=== PATIENT | male | born 1980 | race American Indian/Alaskan Native ===

== ENCOUNTER 2016-09-24 11:51 | Emergency (ER) | payer OTHER ==
[2016-09-24 11:59] VITALS: BP 169/108
[2016-09-24] MEDS ORDERED: DELTASONE PO ONE (12:29)
[2016-09-24] MEDS ORDERED: NORCO 5/325 PO ONE (12:30)
--- NOTE | 2016-09-24 12:33 | Emergency Department Report ---
ED Lower Extremity HPI - General Chief Complaint: Extremity Injury, Lower Stated Complaint: LEFT LEG AND LEFT HIP Time Seen by Provider: 09/24/16 12:19 Source: patient Mode of arrival: Ambulatory Limitations: No Limitations - Related Data Previous Rx's Medication Instructions Recorded Last Taken Type Amlodipine Besylate/Benazepril 1 each PO QDAY #30 capsule 09/24/16 Unknown Rx [Lotrel 10-40 mg] Cyclobenzaprine [Flexeril] 10 mg PO TID PRN #12 tablet 09/24/16 Unknown Rx Hydrochlorothiazide [HCTZ] 25 mg PO QDAY #30 tablet 09/24/16 Unknown Rx methylPREDNISolone [Medrol] 4 mg PO DAILY #1 tab.ds.pk 09/24/16 Unknown Rx traMADol [Ultram] 50 mg PO Q6HR PRN #12 tablet 09/24/16 Unknown Rx Allergies Allergy/AdvReac Type Severity Reaction Status Date / Time ANTI VIRALS Allergy Hives Uncoded 09/24/16 11:53 ED Review of Systems ROS: Stated complaint: LEFT LEG AND LEFT HIP Other details as noted in HPI Comment: All other systems reviewed and negative Constitutional: no symptoms reported Eyes: as per HPI ENT: as per HPI Respiratory: no symptoms reported Cardiovascular: as per HPI Endocrine: no symptoms reported Gastrointestinal: as per HPI Genitourinary: as per HPI Musculoskeletal: as per HPI Skin: as per HPI Neurological: as per HPI Psychiatric: as per HPI Hematological/Lymphatic: as per HPI ED Past Medical Hx - Past Medical History Hx Hypertension: Yes Additional medical history: BELLS PALSY. GOUT - Surgical History Additional Surgical History: LEFT FEMUR SURGERY. LEFT GREAT TOE - Social History Smoking Status: Never Smoker Substance Use Type: None - Medications Home Medications: Home Medications Medication Instructions Recorded Confirmed Last Taken Type Amlodipine Besylate/Benazepril 1 each PO QDAY #30 capsule 09/24/16 Unknown Rx [Lotrel 10-40 mg] Cyclobenzaprine [Flexeril] 10 mg PO TID PRN #12 tablet 09/24/16 Unknown Rx Hydrochlorothiazide [HCTZ] 25 mg PO QDAY #30 tablet 09/24/16 Unknown Rx methylPREDNISolone [Medrol] 4 mg PO DAILY #1 tab.ds.pk 09/24/16 Unknown Rx traMADol [Ultram] 50 mg PO Q6HR PRN #12 tablet 05/03/17 Unknown Rx ED Physical Exam - General Limitations: No Limitations General appearance: alert, in no apparent distress - Head Head exam: Present: atraumatic - Eye Eye exam: Present: normal appearance - ENT ENT exam: Present: normal exam - Neck Neck exam: Present: normal inspection - Respiratory Respiratory exam: Present: normal lung sounds bilaterally - Cardiovascular Cardiovascular Exam: Present: regular rate - GI/Abdominal GI/Abdominal exam: Present: soft - Rectal Rectal exam: Present: deferred - Extremities Exam Extremities exam: Present: normal inspection - Back Exam Back exam: Present: normal inspection - Neurological Exam Neurological exam: Present: alert, altered, oriented X3 - Psychiatric Psychiatric exam: Present: normal affect, normal mood - Skin Skin exam: Present: warm, dry, intact ED Course Vital Signs 09/24/16 11:56 Temperature 98.4 F Pulse Rate 71 Respiratory 19 Rate Blood Pressure 169/108 O2 Sat by Pulse 100 Oximetry ED Lower Extremity MDM - Radiology Data Radiology results: image reviewed - Medical Decision Making l hip pain obese no fall or trauma works on fork lift pos l straight leg raise no s/s cauda equina no incontin/parash. wants a work note until Thursday upset when told no Critical care attestation.: If time is entered above; I have spent that time in minutes in the direct care of this critically ill patient, excluding procedure time. ED Disposition Clinical Impression: Hypertension, Sciatica Disposition: DISCHARGED TO HOME OR SELFCARE Is pt being admited?: No Does the pt Need Aspirin: No Condition: Good Instructions: Sciatica (ED), DASH Eating Plan (ED), Hypertension (ED) Additional Instructions: take you bp meds follow up with your pcp for recheck of your bp low sodium diet hydrate well warm compresses. follow up ortho if persists Prescriptions: Amlodipine Besylate/Benazepril [Lotrel 10-40 mg] 1 each PO QDAY #30 capsule Cyclobenzaprine [Flexeril] 10 mg PO TID PRN #12 tablet PRN Reason: Muscle Spasm Hydrochlorothiazide [HCTZ] 25 mg PO QDAY #30 tablet methylPREDNISolone [Medrol] 4 mg PO DAILY #1 tab.ds.pk traMADol [Ultram] 50 mg PO Q6HR PRN #12 tablet PRN Reason: Pain Referrals: PRIMARY CARE, [Primary Care Provider] - 3-5 Days ALFRED SORIA MD [Staff Physician] - 3-5 Days Forms: Work/School Release Form(ED) Time of Disposition: 13:48
--- NOTE | 2016-09-24 14:31 | XRay Report ---
LEFT HIP: Pain. The bony architecture is intact without evidence of fracture or dislocation. No significant soft tissue abnormality is seen. IMPRESSION: Normal left hip.
== END 2016-09-24 14:07 | disposition home or self-care (01) ==
LOC: ED 11:51
DX: M54.30 Sciatica, unspecified side (principal); I10 Essential (primary) hypertension; G51.0 Bell's palsy; Z88.8 Allergy status to other drugs, medicaments and biological substances
CPT/HCPCS: 73502; 99283; J7512